=== PATIENT | female | born 1975 | race Hispanic/Latino ===

== ENCOUNTER 2020-11-24 18:41 | Emergency (ER) | payer OTHER ==
[~2020-11-24] VITALS: Ht 160 cm; Wt 72.6 kg
[2020-11-24] MEDS ORDERED: AMBIEN5 MG PO (21:49)
[2020-11-24 23:00] VITALS: BP 123/75
[2020-11-24] MEDS ORDERED: VOLTAREN75 MG PO (23:12)
== END 2020-11-24 23:38 | disposition home or self-care (01) | DRG 552 ==
LOC: ED 18:41
DX: S16.1XXA Strain of muscle, fascia and tendon at neck level, initial encounter (principal); S46.911A Strain of unspecified muscle, fascia and tendon at shoulder and upper arm level, right arm, initial encounter; S39.012A Strain of muscle, fascia and tendon of lower back, initial encounter; S90.30XA Contusion of unspecified foot, initial encounter; J45.909 Unspecified asthma, uncomplicated; F17.200 Nicotine dependence, unspecified, uncomplicated; V49.40XA Driver injured in collision with unspecified motor vehicles in traffic accident, initial encounter